=== PATIENT | male | born 1975 | race Caucasian/White ===

== ENCOUNTER 2019-09-01 10:00 | Outpatient (CLI) | payer MEDICAID ==
--- NOTE | 2019-09-01 15:01 | XRAY Report ---
Reason: ANKLE JOINT PAIN Procedure Date: 09/01/2019 Accession Number: [id number] / [id number] Procedure: XRN - Ankle 3 View BILAT CPT Code: Final Report FULL RESULT: EXAMS: 1. Right Ankle Radiography 2. Left Ankle Radiography EXAM DATE: 09/01/2019 10:21 AM. CLINICAL HISTORY: Chronic burning ankle pain after 20 minutes of standing/walking. COMPARISON: None. TECHNIQUE: 3 views each ankle. FINDINGS: Right Ankle: Bones: Normal. No fractures or bone lesions. Joints: Normal. No effusion. No subluxations. The ankle mortise is normally aligned. Soft Tissues: Normal. No soft tissue swelling. Left Ankle: Bones: Normal. No fractures or bone lesions. Joints: Normal. No effusion. No subluxations. The ankle mortise is normally aligned. Soft Tissues: Normal. No soft tissue swelling. IMPRESSION: Normal bilateral ankle radiography. [facility]
== END 2019-09-01 10:01 | disposition home or self-care (01) ==
LOC: DI.N 10:00
PROVIDERS: ATTEND Physician Assistant Medical
DX: M25.571 Pain in right ankle and joints of right foot (principal); M25.572 Pain in left ankle and joints of left foot